=== PATIENT | male | born 1985 | race Caucasian/White ===

== ENCOUNTER 2022-05-03 09:26 | Outpatient (CLI) | payer BC, OTHER ==
[2022-05-03 14:57] LABS: BASOPHILS % (AUTO) 0.3 %; EOSINOPHILS # (AUTO) 0.2 10^3/uL (0.0-0.7); EOSINOPHILS % (AUTO) 1.4 %; HCT - HEMATOCRIT 50.1 % (42.0-52.0); HGB - HEMOGLOBIN 16.1 g/dL (14.0-18.0); LYMPHOCYTES # (AUTO) 1.9 10^3/uL (1.5-3.5); LYMPHOCYTES % (AUTO) 16.4 %; MEAN CORPUSCULAR HEMOGLOBIN 31.1 pg (27.0-31.0); MEAN CORPUSCULAR HGB CONC 32.1 g/dL (32.0-36.0); MEAN CORPUSCULAR VOLUME 96.7 fL (80.0-94.0); MEAN PLATELET VOLUME 9.3 fL (7.4-11.4); MONOCYTES # (AUTO) 1.1 10^3/uL (0.0-1.0); MONOCYTES % (AUTO) 9.9 %; NEUTROPHILS # (AUTO) 8.1 10^3/uL (1.5-6.6); NEUTROPHILS % (AUTO) 71.6 %; PLT - PLATELET COUNT 244 10^3/uL (130-450); RED BLOOD COUNT 5.18 10^6/uL (4.70-6.10); RED CELL DISTRIBUTION WIDTH 13.2 % (12.0-15.0); WHITE BLOOD COUNT 11.3 x10^3/uL (4.8-10.8)
[2022-05-03 15:22] LABS: ALBUMIN 4.3 g/dL (3.2-5.5); ALBUMIN/GLOBULIN RATIO 1.2 (1.0-2.2); ALKALINE PHOSPHATASE 101 IU/L (42-121); ALT ALANINE AMINOTRANSFERASE 34 IU/L (10-60); AST ASPARTATE AMINOTRANSFERASE 33 IU/L (10-42); BILIRUBIN,TOTAL 0.6 mg/dL (0.2-1.0); BUN - BLOOD UREA NITROGEN 19 mg/dL (6-20); CALCIUM 9.3 mg/dL (8.5-10.3); CARBON DIOXIDE - CO2 30 mmol/L (21-32); CHLORIDE 99 mmol/L (101-111); CREATININE 1.4 mg/dL (0.6-1.2); GFR - MDRD 57 (>89); GLUCOSE 105 mg/dL (70-100); POTASSIUM 4.2 mmol/L (3.5-5.0); SODIUM 137 mmol/L (135-145); TOTAL PROTEIN 7.8 g/dL (6.7-8.2); TRIGLYCERIDES 92 mg/dL
[2022-05-03 15:23] LABS: CHOL/HDL RATIO 3.5 (<5.0); CHOLESTEROL 223 mg/dL; HDL CHOLESTEROL 64 mg/dL; LDL CHOLESTEROL,CALCULATED 141 mg/dL; LDL/HDL RATIO 2.2 (<3.6); VLDL CHOLESTEROL 18 mg/dL
[2022-05-03 15:48] LABS: THYROID STIMULATING HORMONE 3.36 uIU/mL (0.34-5.60)
== END 2022-05-03 09:27 | disposition home or self-care (01) ==
LOC: LAB.S 09:26
PROVIDERS: ATTEND Registered Nurse
DX: Z00.00 Encounter for general adult medical examination without abnormal findings (principal); Z79.899 Other long term (current) drug therapy; J45.909 Unspecified asthma, uncomplicated; Z13.220 Encounter for screening for lipoid disorders
CPT/HCPCS: 36415; 80053; 80061; 83721; 84443; 85025

== ENCOUNTER 2022-08-04 10:48 | Emergency (ER) | payer OTHER, BC ==
[2022-08-04 10:57] VITALS: BP 144/85
--- OUTSIDE RECORDS SUMMARY | 2022-08-04 11:08 | EXTERNAL MEDICAL SUMMARY RPT | Continuity of Care Document ---
:1985 Author Organization [place] Address [address] [place] [address] Phone Care Team Providers Name Role Phone Unavailable Unavailable Unavailable Liyah Pennington Unavailable Unavailable Allergies No information. Encounters No information. Functional Status No information. Immunizations No information. Medications date description facility 2022-05-11 00:00 creatine monohydrate (bulk) Walk-In Cl [facility] Primary Care & Ancillary Services [facility] 2022-05-13 00:00 creatine monohydrate (bulk) Walk-In [facility] Primary Care & Ancillary Services [facility] 2022-05-11 00:00 vnjcehkpymta-amby-wwuty acid Walk-In [facility] Primary Care & Ancillary Services [facility] 2022-05-13 00:00 jvpslpnzdvat-mxkw-inekb acid Walk-In [facility] Primary Care & Ancillary Services [facility] 2022-05-11 00:00 beclomethasone dipropionate Walk-In [facility] Primary Care & Ancillary Services [facility] 2022-05-11 00:00 beclomethasone dipropionate Walk-In [facility] Primary Care & Ancillary Services [facility] 2022-05-11 00:00 ekgbyoyqsesw-jkyl-frqsv acid Walk-In [facility] Primary Care & Ancillary Services [facility] 2022-05-13 00:00 oovuahqnbdjs-qzvf-dnptw acid Walk-In [facility] Primary Care & Ancillary Services [facility] 2022-05-11 00:00 albuterol sulfate [facility] Care & Ancillary Services [facility] 2022-05-11 00:00 beclomethasone dipropionate Walk-In [facility] Primary Care & Ancillary Services [facility] 2022-05-11 00:00 albuterol sulfate [facility] 2022-05-11 00:00 creatine monohydrate (bulk) Walk-In [facility] Primary Care & Ancillary Services [facility] 2022-05-13 00:00 creatine monohydrate (bulk) Walk-In [facility] Primary Care & Ancillary Services [facility]ur reyes 2022-05-11 00:00 beclomethasone dipropionate Walk-In [facility] Primary Care & Ancillary Services amy 2022-05-11 00:00 albuterol sulfate Walk-In Clinic [facility] Care & Ancillary Services Ankur reyes 2022-05-11 00:00 albuterol sulfate Walk-In [facility] Care & Ancillary Services [facility] 2022-05-11 00:00 saolsffazjcd-mqbd-sktlq acid Walk-In [facility] Primary Care & Ancillary Services [facility] 2022-05-13 00:00 pbvmqjqekgux-aqep-hcyrc acid Walk-In [facility] Primary Care & Ancillary Services [facility] 2022-05-11 00:00 creatine monohydrate (bulk) Walk-In [facility] Primary Care & Ancillary Services Ankur reyes 2022-05-13 00:00 creatine monohydrate (bulk) Walk-In [facility] Primary Care & Ancillary Services Ankur reyes 2022-05-11 00:00 creatine monohydrate (bulk) Walk-In [facility] Primary Care & Ancillary Services amy 2022-05-13 00:00 creatine monohydrate (bulk) Walk-In [facility] Primary Care & Ancillary Services Ankur reyes Problems date description facility 2022-05-10 00:00 Screening for malignant neoplasm of Wa lk-In [facility] Primary Care colon & Ancillary Services [place] 2022-05-10 00:00 Family history of cancer of colon Walk -In [facility] Primary Care & Ancillary Services [place] 2022-05-10 00:00 Decreased renal function [facility] Care [facility] Ancillary Services [place] 2022-05-10 00:00 Other malaise and fatigue Walk[facility]In [facility] Primary Care & Ancillary Services [place] 2022-05-10 00:00 Nonspecific abnormal results of Walk-I n Clinic Primary Care function study of kidney & Ancillary Ser vices [place] 2022-05-10 00:00 Fatigue Walk-In Clinic [facility] Care & Ancillary Services [place] 2022-05-10 00:00 Other fatigue Walk-In Clinic [facility] Care & Ancillary Services [place] 2022-05-10 00:00 Abnormal results of kidney function Wa lk-In [facility] Primary Care studies & Ancillary Services [place] 2022-05-10 00:00 Family history of malignant neoplasm W alk-In Clinic Primary Care of gastrointestinal tract & Ancillary Se rvices [place] 2022-05-10 00:00 Screening for malignant neoplasms of W alk-In Clinic Primary Care colon & Ancillary Services [place] 2022-05-10 00:00 Encounter for screening for Walk-In Cl in Primary Care malignant neoplasm of colon & Ancillary Services [place] 2022-05-10 00:00 Family history of malignant neoplasm W alk-In Clinic Primary Care of digestive organs & Ancillary Services [place] Procedures date description facility 2022-05-10 00:00 Visit Code Hold Walk[facility] Results/Labs No information. Social History date description facility 2022-05-10 00:00 Never smoker Walk-In Clinic [facility] Care & Ancillary Services [place] Vital Signs date measurement value units 2022-05-10 00:00 BMI 29.39 kg/m2 2022-05-10 00:00 BP_diastolic 79 mmHg 2022-05-10 00:00 BP_systolic 121 mmHg 2022-05-10 00:00 heart_rate 74 /min 2022-05-10 00:00 height_metric 180.34 cm 2022-05-10 00:00 height_standard 71 in 2022-05-10 00:00 respiration_rate 16 /min 2022-05-10 00:00 temperature_metric 36.78 C 2022-05-10 00:00 temperature_standard 98.2 F 2022-05-10 00:00 weight_metric 95.25 kg 2022-05-10 00:00 weight_standard 210 lb
[2022-08-04] MEDS ORDERED: BACITRACIN ZINC OINT 1 PACKET TOP STA (11:42)
--- NOTE | 2022-08-04 11:52 | ED Physician Documentation ---
History of Present Illness - Stated complaint Stated Complaint: LT THUM LAC - Chief complaint Chief Complaint: Laceration - Additonal information Additional information: 37-year-old male presents emergency department for evaluation of acute left thumb laceration sustained when using a bread knife to cut a bagel. Tetanus up-to-date in 2019. Gabui-duao-fcoyuazg. Bleeding controlled with pressure. Neurovascularly intact. Review of Systems Skin: reports: Laceration (s) PD PAST MEDICAL HISTORY - Allergies Allergies/Adverse Reactions: Allergies Allergy/AdvReac Type Severity Reaction Status Date / Time No Known Drug Allergies Allergy Verified 08/04/22 10:58 PD ED PE EXPANDED - Extremities Extremities: Left finger(s) (Left thumb laceration distal tip 2 cm. Flap laceration. Neurovascularly intact. Able to flex and extend at DIP joint) Results - Vitals Vitals: Vital Signs - 24 hr 08/04/22 10:54 Temperature 36.0 C L Heart Rate 94 Respiratory 16 Rate Blood Pressure 144/85 H O2 Saturation 98 Oxygen O2 Source Room air Procedures - Laceration (location) Left thumb Wound type: Flap, Into subcut fat Neurovascular status: Sensory intact, Motor intact Tendon involvement: Tendon intact Anesthesia: Marcaine 0.5% Wound preparation: Chlorhexadine, Irrigated copiously NS Skin layer closure: Nylon, Interrupted, Size #-0 - enter number (4), Sutures - enter # (4) Other: Patient tolerated well, No complications, Neurovascular intact, Dressing applied, Tetanus UTD PD Medical Decision Making - ED course Complexity details: d/w patient ED course: 29-year-old male here with a flap laceration distal left thumb after using a bread knife. Neurovascularly intact. No evidence of tendon injury. Wound easily closed using 4 interrupted nylon sutures. Tetanus is up-to-date. Routine wound care and emergent return precautions discussed Departure - Departure Disposition: 01 Home, Self Care Clinical Impression: Thumb laceration Qualifiers: Encounter type: initial encounter Damage to nail status: without damage Foreign body presence: without foreign body Laterality: left Qualified Code(s): S61.012A - Laceration without foreign body of left thumb without damage to nail, initial encounter Instructions: ED Laceration All Comments: Your suture(s) should be removed in about 10 days. In 24 hours you may remove the dressing wash gently with warm soap and water, apply any antibiotic ointment and a simple bandage. Your tetanus is up-to-date. Please attempt to keep your wound clean and dry. Do not submerge it in dirty dishwater or bath water. Return to the emergency department if you have any concerns of infection such as redness, fevers milky drainage increased pain.
== END 2022-08-04 11:53 | disposition home or self-care (01) ==
LOC: ED 10:48
DX: S61.012A Laceration without foreign body of left thumb without damage to nail, initial encounter (principal); W26.0XXA Contact with knife, initial encounter; Y93.G1 Activity, food preparation and clean up
CPT/HCPCS: 12001; 99281; A9270

== ENCOUNTER 2023-08-12 09:14 | Outpatient (CLI) | payer BC ==
[2023-08-12 14:53] LABS: BASOPHILS % (AUTO) 0.6 %; EOSINOPHILS # (AUTO) 0.1 10^3/uL (0.0-0.7); EOSINOPHILS % (AUTO) 2.1 %; HCT - HEMATOCRIT 47.5 % (42.0-52.0); HGB - HEMOGLOBIN 15.3 g/dL (14.0-18.0); LYMPHOCYTES # (AUTO) 1.5 10^3/uL (1.5-3.5); LYMPHOCYTES % (AUTO) 31.9 %; MEAN CORPUSCULAR HGB CONC 32.2 g/dL (32.0-36.0); MEAN CORPUSCULAR VOLUME 96.3 fL (80.0-94.0); MEAN PLATELET VOLUME 9.7 fL (7.4-11.4); MONOCYTES # (AUTO) 0.6 10^3/uL (0.0-1.0); MONOCYTES % (AUTO) 12.6 %; NEUTROPHILS # (AUTO) 2.5 10^3/uL (1.5-6.6); NEUTROPHILS % (AUTO) 52.4 %; PLT - PLATELET COUNT 279 10^3/uL (130-450); RED BLOOD COUNT 4.93 10^6/uL (4.70-6.10); RED CELL DISTRIBUTION WIDTH 12.7 % (12.0-15.0); WHITE BLOOD COUNT 4.8 x10^3/uL (4.8-10.8)
[2023-08-12 16:07] LABS: ALBUMIN/GLOBULIN RATIO 1.5 (1.0-2.2); BILIRUBIN,TOTAL 0.6 mg/dL (0.2-1.0); CALCIUM 9.6 mg/dL (8.5-10.3); CREATININE 1.1 mg/dL (0.6-1.3); POTASSIUM 4.4 mmol/L (3.5-4.5); TOTAL PROTEIN 6.6 g/dL (6.4-8.9)
== END 2023-08-12 09:15 | disposition home or self-care (01) ==
LOC: LAB.S 09:14
PROVIDERS: ATTEND Registered Nurse
DX: Z79.899 Other long term (current) drug therapy (principal)
CPT/HCPCS: 36415; 80053; 85025